=== PATIENT | male | born 1985 | race Caucasian/White ===

== ENCOUNTER 2024-03-16 01:40 | Emergency (ER) | payer BC, OTHER ==
[2024-03-16 01:47] VITALS: BMI 29.9
[2024-03-16] MEDS ORDERED: KETOROLAC TROMETHAMINE 30 MG/1 ML VIAL ONE (03:08)
[2024-03-16] MEDS ORDERED: ACETAMINOPHEN INJECTION 100 ML IVPB ONE (03:08)
[2024-03-16] MEDS ORDERED: ONDANSETRON 4 MG/2 ML VIAL ONE (03:09)
[2024-03-16] MEDS: KETOROLAC TROMETHAMINE 30 MG/1 ML VIAL IVPUSH ONE (03:33)
[2024-03-16] MEDS: SODIUM CHLORIDE 0.9% 500 ML INFUS.BAG IV ONE (03:33)
[2024-03-16] MEDS: ONDANSETRON 4 MG/2 ML VIAL IVPUSH ONE (03:34)
[2024-03-16] MEDS: ACETAMINOPHEN 1000 MG/100 ML BAG IVPB ONE (03:34)
[2024-03-16 04:00] LABS: BASO % 0.1 % (0-2.0); EOS % 0.3 % (0-4.5); HEMATOCRIT 38.3 % (35.4-49); HEMOGLOBIN 13.2 GM/dL (11.7-16.9); LYMPH % 11.1 % (8-40); MCH 31.7 pg (25.7-33.7); MCHC 34.5 g/dl (32.0-35.9); MEAN CELL VOLUME 91.9 fl (80-96); MEAN PLT VOLUME 8.6 fl (7.5-11.1); MONO % 4.4 % (3.8-10.2); NEUT % 84.1 % (42.8-82.8); PLATELET COUNT 240 10^3/uL (134-434); RBC 4.17 M/mm3 (4.00-5.60); RDW 13.4 % (11.9-15.9); WHITE BLOOD COUNT 15.1 K/mm3 (4.0-10.0)
[2024-03-16 04:31] LABS: POTASSIUM 4.3 mmol/L (3.5-5.1)
[2024-03-16 04:33] LABS: ALBUMIN 4.1 g/dl (3.4-5.0); BLOOD UREA NITROGEN 22.7 mg/dL (7-18); CALCIUM 9.3 mg/dL (8.5-10.1)
[2024-03-16 04:36] LABS: CREATININE 1.3 mg/dL (0.55-1.3)
[2024-03-16 04:38] LABS: BILIRUBIN,TOTAL 0.4 mg/dL (0.2-1); TOT PROT 7.5 g/dl (6.4-8.2)
[2024-03-16 06:08] VITALS: TEMP 97.5
[2024-03-16 08:30] LABS: EPI CELLS 6 /uL (0-25.1); HYALINE CASTS 5 /uL (0-3.1); PH,URINE 5.5 (5.0-8.0); URINE APPEARANCE CLEAR; URINE BACTERIA 20 /uL (0-1359); URINE BILIRUBIN NEGATIVE (NEGATIVE); URINE COLOR YELLOW; URINE GLUCOSE (UA) NEGATIVE (NEGATIVE); URINE KETONE NEGATIVE (NEGATIVE); URINE LEUK ESTERASE NEGATIVE (NEGATIVE); URINE NITRITE NEGATIVE (NEGATIVE); URINE PROTEIN NEGATIVE (NEGATIVE); URINE RBC 44 /uL (0-23.9); URINE UROBILINOGEN 0.2 mg/dL (0.2-1.0); URINE WBC 6 /uL (0-25.8)
[2024-03-16 11:29] VITALS: BP 99/53; PULSE 68; RESP 18
== END 2024-03-16 11:38 | disposition home or self-care (01) ==
LOC: JER 01:40
PROC: 3E033NZ Introduction of Analgesics, Hypnotics, Sedatives into Peripheral Vein, Percutaneous Approach (ICD-10-PCS; principal; 2024-03-16)
PROC: 3E0333Z Introduction of Anti-inflammatory into Peripheral Vein, Percutaneous Approach (ICD-10-PCS; 2024-03-16)
PROC: 3E033GC Introduction of Other Therapeutic Substance into Peripheral Vein, Percutaneous Approach (ICD-10-PCS; 2024-03-16)
DX: N13.2 Hydronephrosis with renal and ureteral calculous obstruction (principal); R11.2 Nausea with vomiting, unspecified; R10.32 Left lower quadrant pain
CPT/HCPCS: 36415; 74177-TC; 80053; 81003; 83605; 83690; 85025; 87086; 93005; 93010; 99285-25; J0131

== ENCOUNTER 2025-03-30 07:50 | Emergency (ER) | payer OTHER ==
[2025-03-30] MEDS ORDERED: LIDOCAINE 4% PATCH TP ONE (08:38)
[2025-03-30] MEDS: LIDOCAINE 4% PATCH TP ONE (08:39)
[2025-03-30 11:31] VITALS: BP 123/68; PULSE 92; RESP 18; TEMP 98; BMI 38.2
== END 2025-03-30 08:40 | disposition home or self-care (01) ==
LOC: JER 07:50
DX: M54.50 Low back pain, unspecified (principal); V43.53XD Car driver injured in collision with pick-up truck in traffic accident, subsequent encounter; Y92.410 Unspecified street and highway as the place of occurrence of the external cause
CPT/HCPCS: 72100-TC-FY; 99283-25